=== PATIENT | female | born 1980 | race Caucasian/White ===

== ENCOUNTER 2016-06-22 07:15 | Emergency (ER) | payer OTHER ==
[~2016-06-22] VITALS: Ht 165.1 cm; Wt 61.2 kg
[2016-06-22 07:20] VITALS: BP 148/79
== END 2016-06-22 07:32 | disposition home or self-care (01) ==
LOC: ER 07:18
DX: M27.8 Other specified diseases of jaws (principal)
CPT/HCPCS: 99281; A4606; Z7610; Z7502

== ENCOUNTER 2016-07-27 10:08 | Emergency (ER) | payer OTHER ==
[~2016-07-27] VITALS: Ht 162.6 cm; Wt 61.2 kg
[2016-07-27 10:08] VITALS: BP 116/92
== END 2016-07-27 10:40 | disposition home or self-care (01) ==
LOC: ER 10:10
DX: J01.90 Acute sinusitis, unspecified (principal)
CPT/HCPCS: 99283; A4606; Z7610

== ENCOUNTER 2016-08-06 19:53 | Emergency (ER) | payer OTHER ==
[~2016-08-06] VITALS: Ht 162.6 cm; Wt 61.2 kg
[2016-08-06 20:01] VITALS: BP 119/64
[2016-08-06 20:24] LABS: KETONES,URINE Negative (NEGATIVE); LEUKOCYTE ESTERASE ,URINE Small (NEGATIVE)
[2016-08-06 20:29] LABS: ADD UA MICROSCOPIC YES
[2016-08-06 20:30] LABS: PREGNANCY TEST URINE QUAL NEGATIVE (NEGATIVE)
[2016-08-06 20:36] LABS: ADD URINE CULTURE YES; RBC,URINE 21-50 /HPF (0-2)
== END 2016-08-06 20:43 | disposition home or self-care (01) ==
LOC: ER 19:55
DX: N39.0 Urinary tract infection, site not specified (principal); Z98.890 Other specified postprocedural states
CPT/HCPCS: 81001; 84703; 87086; 99284; A4606; Z7610; 81000-TC; 87186-TC